=== PATIENT | male | born 1980 | race Caucasian/White ===

== ENCOUNTER 2017-12-21 19:09 | Emergency (ER) | payer SELFPAY ==
[2017-12-21] MEDS ORDERED: Ketorolac 30 MG/ML SDV IM ONE (19:18)
--- NOTE | 2017-12-21 19:25 | EDM.PDOC ---
ED HPI GENERAL MEDICAL PROBLEM - General Chief Complaint: Upper Extremity Injury/Pain Stated Complaint: Left Shoulder Pain Time Seen by Provider: 12/21/17 19:10 Source of Information: Reports: Patient History Limitations: Reports: No Limitations - History of Present Illness INITIAL COMMENTS - FREE TEXT/NARRATIVE: Patient comes into the emergency department today with a sudden onset of left shoulder pain starting this morning when he woke up. He states that is tender to touch and painful when rotating. He can pinpoint the area of discomfort. He states it radiates down his left shoulder. It feels better when he is resting the arm and the pain progresses when trying to lift his arm over his shoulder. Denies any shortness of breath chest pain dizziness lightheadedness or pain up into the jaw. He states that he also has chronic back pain and is on Lyrica for that. 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 Onset: Sudden Improves with: Reports: Immobilization Worsens with: Reports: Movement - Related Data Allergies Allergy/AdvReac Type Severity Reaction Status Date / Time No Known Allergies Allergy Verified 12/21/17 19:17 Home Meds: Home Meds Pregabalin [Lyrica] 150 mg PO TID 12/21/17 [History] Review of Systems - Review of Systems Review Of Systems: See Below Constitutional: Reports: No Symptoms Eyes: Reports: No Symptoms Ears: Reports: No Symptoms Nose: Reports: No Symptoms Mouth/Throat: Reports: No Symptoms Respiratory: Reports: No Symptoms Cardiovascular: Reports: No Symptoms GI/Abdominal: Reports: No Symptoms Musculoskeletal: Reports: No Symptoms ED EXAM, GENERAL - Physical Exam Exam: See Below Exam Limited By: No Limitations General Appearance: Alert, WD/WN, No Apparent Distress Respiratory/Chest: No Respiratory Distress, No Accessory Muscle Use Cardiovascular: Normal Peripheral Pulses, Regular Rate, Rhythm Extremities: Normal Inspection, Arm Pain (left shoulder pain. Proximal to the AC joint pain and muscle spasm with rotation and lifting arm up. ) Neurological: Alert, Oriented Psychiatric: Normal Affect, Normal Mood Skin Exam: Warm, Dry, Intact, Normal Color, No Rash Departure - Departure Time of Disposition: 19:45 Disposition: Home, Self-Care 01 Condition: Good Clinical Impression: Pinched nerve in shoulder Qualifiers: Laterality: left Qualified Code(s): G56.82 - Other specified mononeuropathies of left upper limb - Discharge Information Instructions: Shoulder Pain, [id number] Referrals: PCP,Unknown [Primary Care Provider] - Additional Instructions: 1. rest 2. Can take [id number] Tylenol and ibuprofen for pain and discomfort 3. Follow-up with primary care if necessary if pain persists [id number] 4. use ice and or heat 3 times a day for 20 minutes at a time to help reduce pain 5. Ensure you are doing active range of motion to prevent area from becoming stiff. - Assessment/Plan Assessment:: 1. left shoulder pain Plan: 1. Toradol IM given in the ER for pain 2. Norflex IM given in the ER for muscle spasm 3. Education regarding [id number] use of medications, seeking out primary care, using physical therapy, and active range of motion was given to the patient 4. Education regarding follow-up also given.
== END 2017-12-21 19:45 | disposition home or self-care (01) ==
LOC: VM.ED 19:09 → SUPCPDRO 19:09 → VM.ED 19:45
DX: G56.82 Other specified mononeuropathies of left upper limb (principal); Z79.899 Other long term (current) drug therapy
CPT/HCPCS: 96372; 99283; J1885; J2360